=== PATIENT | male | born 1965 | race Caucasian/White ===

== ENCOUNTER → 2020-03-05 | Outpatient (CLI) | payer MEDICARE ==
[~2020-03-05] MED LIST: ALLP100T PO; ASP81TEC PO; ATOR40TA PO; BP MED; CNDS16T PO; GOUT MED; IBP600T1 PO; LOSARTAN; NAPR-243 PO; OMEP40CA36 PO; OXCA600T PO; PRM25T PO; QUET50TA49 PO; SRTR100T PO
== END ==
LOC: CARD 09:57
PROVIDERS: ATTEND Internal Medicine Cardiovascular Disease
DX: I34.0 Nonrheumatic mitral (valve) insufficiency (principal); E78.2 Mixed hyperlipidemia; I10 Essential (primary) hypertension; R55 Syncope and collapse; Z72.0 Tobacco use
CPT/HCPCS: 93306

== ENCOUNTER → 2020-04-02 | Outpatient (CLI) | payer MEDICARE ==
[~2020-04-02] VITALS: Ht 173 cm; Wt 60.0 kg
[~2020-04-02] MED LIST changes: +REGADENOSON 0.4 MG/5 ML SYR (LEXISCAN) IV ONE
[2020-04-02] MEDS: CATHETER FLUSH 10 ML SYR IV PRN ×2 (08:39→09:43)
[2020-04-02 13:08] VITALS: BP 103/79
--- NOTE | 2020-04-02 13:08 | Cardiology Stress Test Report ---
Stress Test Report Date of Procedure/Referring: Date of Procedure: Apr 02, 2020 PCP Chris Urias MD Admitting Physician No,Local Physician Indications: Hypertension Baseline Heart Rate: 57 Baseline Blood Pressure: Blood Pressure Systolic: 103 Blood Pressure Diastolic: 79 Baseline EKG: Baseline EKG: normal sinus rhythm Summary After explaining the procedure to the patient, he signed a consent and then brought to the stress nuclear laboratory. Patient received 0.4 mg Lexiscan for stress test, ECG, heart rate and blood pressure were monitored continuously. Resting and stress dose of radio tracer were injected, imaging was acquired and reviewed in short axis, horizontal long axis and vertical long axis views. TID: 1.1 SSS: 3 SDS: 3 EF: 52 1. Patient tolerated Lexiscan well 2. Diaphragmatic attenuation with typical male pattern, no significant ischemia or infarction on SPECT images 3. Normal left ventricular size, EF 52 percent CHRIS URIAS MD Apr 02, 2020 13:08
== END ==
LOC: CARD 08:45
PROVIDERS: ATTEND Internal Medicine Cardiovascular Disease
DX: I10 Essential (primary) hypertension (principal); I34.0 Nonrheumatic mitral (valve) insufficiency; E78.2 Mixed hyperlipidemia; R55 Syncope and collapse; Z72.0 Tobacco use
CPT/HCPCS: 78452; 93017; A9502